=== PATIENT | female | born 1990 ===

== ENCOUNTER → 2016-11-13 | Outpatient (CLI) | payer OTHER ==
[~2016-11-13] MED LIST: ACET-1256 PO; CEPH-571 PO; CEPH500C PO; FERR1TAB13 PO; FERR325T5 PO; FRRS300 PO; IBUP-103 PO; IBUP-1450 PO; MTR600X PO; PRENTAB26 PO; ZNTT/150 PO
--- NOTE | 2016-11-13 14:50 | DIAGNOSTIC IMAGING REPORT ---
COMP>14 WEEKS SINGLE CLINICAL HISTORY: Poor growth at 33 weeks. COMPARISON STUDY: No previous studies for comparison. FINDINGS: Single viable intrauterine gestation is noted. heart rate is normal at 135 bpm. Amniotic fluid index measures 8.9 cm which is at the lower limits of normal. The cervix is closed, measuring approximately 2.5 cm in length. Please note that a dedicated anatomical survey was not performed. The biparietal diameter measured 8.6 cm which corresponds to an estimated gestational age of 34 weeks and 6 days. Head circumference measured 29 cm which corresponds to an estimated gestational age of 32 weeks and 0 days. Abdominal circumference measured 27.9 cm which corresponds to an estimated gestational age of 32 weeks and 0 days. Femur length measured 5.8 cm which corresponds to an estimated gestational age of 30 weeks and 3 days. Estimated age on this exam is 32 weeks and 2 days. Estimated weight is 4 pounds and 0 ounces. Presentation is cephalic. Placenta is located posteriorly and along the left lateral aspect of the uterus. No placental abnormalities identified. IMPRESSION: 1. Single viable intrauterine gestation with normal heart rate. 2. Amniotic fluid index at the lower limits of normal, measuring 8.9 cm. 3. Mildly shortened cervix, measuring approximately 2.5 cm. Cervix appears closed. 4. Estimated gestational age on this exam of 32 weeks and 2 days with estimated weight of 4 pounds and 0 ounces. Electronically signed by: Mulugeta Pérez M.D. 11/13/2016 2:48 PM Dictated Date/Time: 11/13/2016 2:44 PM
== END | disposition home or self-care (01) ==
LOC: C.ULTR 13:34
PROVIDERS: ATTEND Physician Assistant
DX: O36.5931 Maternal care for other known or suspected poor fetal growth, third trimester, fetus 1 (principal)

== ENCOUNTER 2016-12-20 06:23 | Outpatient (CLI) | payer OTHER ==
[2016-12-20] MEDS ORDERED: FERR1TAB13 PO (09:36)
[2017-03-16] MEDS ORDERED: PRENTAB26 PO (09:36)
[2017-03-16] MEDS ORDERED: ZNTT/150 PO (09:37)
[2017-03-16] MEDS ORDERED: FERR325T5 PO (18:11)
== END 2016-12-20 08:44 | disposition home or self-care (01) ==
LOC: C.OPB 06:23 → C.LD 06:23 → C.OPB 08:44
PROVIDERS: ATTEND Obstetrics & Gynecology
DX: O62.9 Abnormality of forces of labor, unspecified (principal); Z3A.39 39 weeks gestation of pregnancy

== ENCOUNTER 2016-12-20 15:32 | Inpatient (IN) | payer OTHER ==
[~2016-12-20] VITALS: Ht 167.6 cm; Wt 63.0 kg
[~2016-12-20 15:32] MED LIST changes: -ACET-1256 PO; -CEPH-571 PO; -CEPH500C PO; -FERR325T5 PO; -FRRS300 PO; -IBUP-103 PO; -IBUP-1450 PO; -MTR600X PO; -PRENTAB26 PO; -ZNTT/150 PO
[2016-12-20] MEDS ORDERED: LACTATED RINGER'S 1000ML 1,000 ML IV PRN (16:50)
[2016-12-20] MEDS ORDERED: PENICILLIN G POTASSIUM IV 6 MU in DEXTROSE 5% 250ML 250 ML IV ONE (17:00)
[2016-12-20 17:14] VITALS: Ht 167.6 cm; Wt 63.0 kg
[2016-12-20] MEDS: LACTATED RINGER'S 1000ML 1,000 ML IV SCH ×2 (17:23→19:39)
[2016-12-20] MEDS ORDERED: ACETAMINOPHEN 500 MG TAB PO STA (17:25)
[2016-12-20 17:45] LABS: HEMATOCRIT 28.3 % (37-47); MEAN CORPUSCULAR HGB CONC 32.5 g/dl (32-36); PLATELET COUNT 122 K/uL (130-400); PLT ESTIMATE DECREASED; RED BLOOD COUNT 3.29 M/uL (4.2-5.4); WHITE BLOOD COUNT 9.07 K/uL (4.8-10.8)
[2016-12-20] MEDS ORDERED: BUPIVACAINE 0.25% 30 ML VIAL ONE ×2 (18:59→23:26)
[2016-12-20] MEDS ORDERED: FENTANYL CITRATE INJ 50 MCG/1 ML 2 ML VIAL ONE ×2 (18:59→23:26)
[2016-12-20] MEDS ORDERED: EpHEDrine SULFATE INJ 50 MG/ML AMP ONE (18:59)
[2016-12-20] MEDS ORDERED: FENTANYL 2MCG/ML ROPIV 1.25MG/ML 100ML BAG EPI ONE (18:59)
[2016-12-20] MEDS ORDERED: LACTATED RINGER'S 1000ML 500 ML IV PRN ×2 (19:24→20:18)
[2016-12-20] MEDS ORDERED: FENTANYL 2MCG/ML ROPIV 1.25MG/ML 100ML BAG EPI PRN (19:30)
[2016-12-20] MEDS ORDERED: EpHEDrine SULFATE INJ 50 MG/ML AMP IV PRN (19:30)
[2016-12-20] MEDS ORDERED: NALOXONE HCL INJ 0.4 MG/1 ML VIAL/CARP IV PRN (19:30)
[2016-12-20] MEDS ORDERED: OXYTOCIN 30 UNITS/500ML NSS IV PRN (20:30)
[2016-12-20] MEDS: PENICILLIN G POTASSIUM IV 3 MU in DEXTROSE 5% 100ML 100 ML IV PRN (21:38)
[2016-12-20 22:10] LABS: INR 0.9 (0.9-1.1); PROTHROMBIN TIME (PATIENT) 9.4 SECONDS (9.0-12.0)
[2016-12-20 22:17] LABS: BUN/CREATININE RATIO 14.2 (10-20); CALCIUM 7.8 mg/dl (8.5-10.1); CREATININE 0.6 mg/dl (0.60-1.20); POTASSIUM 3.4 mmol/L (3.5-5.1)
[2016-12-20] MEDS ORDERED: MAGNESIUM SULFATE / WTR 1,000 ML IV ONE (23:18)
[2016-12-21] MEDS: PENICILLIN G POTASSIUM IV 3 MU in DEXTROSE 5% 100ML 100 ML IV PRN ×3 (01:41→09:43)
[2016-12-21] MEDS ORDERED: FENTANYL CITRATE INJ 50 MCG/1 ML 2 ML VIAL ONE (01:57)
[2016-12-21] MEDS ORDERED: LACTATED RINGER'S 1000ML 500 ML IV PRN (02:50)
[2016-12-21] MEDS ORDERED: NALOXONE HCL INJ 1 MG in SODIUM CHLORIDE 0.9% 1000ML 1,000 ML IV PRN (02:50)
[2016-12-21] MEDS ORDERED: NALOXONE HCL INJ 0.4 MG/1 ML VIAL/CARP IV PRN (03:00)
[2016-12-21] MEDS ORDERED: DiphenhydrAMINE HCL 50 MG/ML VIAL IV PRN (03:00)
[2016-12-21] MEDS ORDERED: ONDANSETRON INJ 2 MG/ML 2 ML VIAL IV PRN (03:00)
[2016-12-21] MEDS ORDERED: NALBUPHINE HCL INJ 10 MG/ML AMP IV PRN (03:00)
[2016-12-21] MEDS ORDERED: EpHEDrine SULFATE INJ 50 MG/ML AMP IV PRN (03:00)
[2016-12-21] MEDS: FENTANYL 2MCG/ML ROPIV 1.25MG/ML 100ML BAG EPI PRN ×3 (05:44→07:59)
[2016-12-21] MEDS ORDERED: BUPIVACAINE 0.25% 30 ML VIAL ONE (07:26)
[2016-12-21] MEDS ORDERED: FENTANYL 2MCG/ML ROPIV 1.25MG/ML 100ML BAG EPI PRN (07:30)
[2016-12-21] MEDS ORDERED: CARBOPROST TROMETHAMINE 250 MCG/ML AMP ONE (12:00)
[2016-12-21] MEDS ORDERED: MISOPROSTOL 200 MCG TAB ONE (12:03)
[2016-12-21] MEDS ORDERED: METHYLERGONOVINE MALEATE 0.2 MG/ML AMP ONE (12:04)
--- NOTE | 2016-12-21 12:59 | Progress Note ---
Progress Note Date of Service Dec 21, 2016. Progress Note Delivery Note Delivered live male in DESMOND presentation Tight nuchal cord, reduced without difficulty. Baby appears meconium stained. cord is clamped and cut . No delay cord clamping because of meconium 8/9 Cord gas and cord blood is obtained Placenta spontaneously delivered and appears meconium stained as well. Placenta is sent to pathology for analysis Inspection of the perineum showed a 2nd degree midline episiotomy with left labia laceration Moderate bleeding EBL; 500cc Hemabate IM is given with rectal Cytotec and Piton Episiotomy and laceration is repaired in 2-0 Vicryl layers There is good hematosis post repair Rectal exam post repair shows good sphincter tone and no sutures are palpated in rectum All instruments,sponges,needles and rectum are removed from the vagina and accounted for x2 Baby an mother are stable and doing well in recovery
[2016-12-21] MEDS ORDERED: LANOLIN OINT EXT PRN ×2 (13:00)
[2016-12-21] MEDS ORDERED: OXYTOCIN 30 UNITS/500ML NSS IV PRN (13:00)
[2016-12-21] MEDS ORDERED: BENZOCAINE 20% AER SPR 82.5 GM CAN EXT PRN (13:00)
[2016-12-21] MEDS ORDERED: SUPERCREAM 0.870 % 15GM JAR EXT PRN (13:00)
[2016-12-21] MEDS ORDERED: ACETAMINOPHEN 325 MG TAB PO PRN (13:00)
[2016-12-21] MEDS ORDERED: HYDROCORTISONE ACETATE 25 MG SUPP PR PRN (13:00)
[2016-12-21] MEDS ORDERED: IBUPROFEN 600 MG TAB PO PRN (13:00)
[2016-12-21] MEDS ORDERED: CARBOPROST TROMETHAMINE 250 MCG/ML AMP IM ONE (13:00)
[2016-12-21] MEDS ORDERED: OXYCODONE/ACETAMINOPHEN 5-325 TAB PO PRN (13:00)
[2016-12-21] MEDS ORDERED: ACETAMINOPHEN/CODEINE 300/30MG TAB PO PRN ×2 (13:00)
[2016-12-21] MEDS ORDERED: DIPHTHERIA/TETANUS/PERTUSSIS 0.5 ML SYR/VIAL IM. ONE (13:00)
--- NOTE | 2016-12-21 14:23 | Anesthesia Procedure Note ---
Anesthesia Epidural Removal Nt Date & Time Dec 21, 2016 at 14:23 Vital Signs Pain Intensity: 3 Notes Mental Status: alert / awake / arousable, participated in evaluation Nausea / Vomiting: adequately controlled Pain: adequately controlled Airway Patency, RR, SpO2: stable & adequate BP & HR: stable & adequate Hydration State: stable & adequate Neuraxial Anesthesia: was administered Anesthetic Complications: no major complications apparent, pt satisfied with anesthetic care Epidural: removed without complications, with tip intact
[2016-12-21 16:00] VITALS: BP 95/62; PULSE 88; TEMP 37.1; O2SAT 100
[2016-12-21 20:20] VITALS: BP 103/65; PULSE 88; TEMP 37.1; O2SAT 98
[2016-12-21] MEDS: DOCUSATE SODIUM 100 MG CAP PO SCH (20:23)
[2016-12-22 00:25] VITALS: BP 110/70; PULSE 96; TEMP 37.2
[2016-12-22 04:00] VITALS: BP 102/62; PULSE 76; TEMP 36.9
[2016-12-22 07:22] VITALS: BP 101/61; PULSE 72; TEMP 37; O2SAT 95
[2016-12-22] MEDS: DOCUSATE SODIUM 100 MG CAP PO SCH ×2 (07:56→19:59)
[2016-12-22] MEDS: FERROUS SULFATE 325 MG TAB PO SCH (07:57)
[2016-12-22] MEDS: PRENATAL VITAMIN TAB PO SCH (07:57)
[2016-12-22 11:32] VITALS: BP 110/71; PULSE 78; TEMP 36.9; O2SAT 98
[2016-12-22 15:40] VITALS: BP 115/65; PULSE 94; TEMP 36.9
[2016-12-22] MEDS ORDERED: BISACODYL 5 MG TABEC PO SCH (20:00)
[2016-12-22 23:55] VITALS: BP 106/70; PULSE 77; TEMP 37; O2SAT 99
[2016-12-23] MEDS ORDERED: BISACODYL 10 MG SUPP PR PRN (07:00)
[2016-12-23 07:18] LABS: HEMATOCRIT 21.8 % (37-47); MEAN CELL VOLUME 87.2 fL (80-100); MEAN CORPUSCULAR HEMOGLOBIN 28.8 pg (25-34); MEAN PLATELET VOLUME 11.7 fL (7.4-10.4); PLATELET COUNT 127 K/uL (130-400); WHITE BLOOD COUNT 14.09 K/uL (4.8-10.8)
[2016-12-23] MEDS ORDERED: MTR600X PO (07:37)
[2016-12-23] MEDS ORDERED: FRRS300 PO (07:37)
--- NOTE | 2016-12-23 07:39 | Discharge Instructions ---
Discharge Instructions Date of Service Dec 23, 2016. Admission Reason for Admission: Check Labor Discharge Discharge Diagnosis / Problem: term delivered Discharge Goals Goal(s): Routine recovery after delivery Activity Recommendations Activity Limitations: as noted below Lifting Limitations: no more than 10 pounds Exercise/Sports Limitations: gradually increase as tolerated, until after follow-up appointment May Resume Sexual Activity: after follow-up appointment Shower/Bathe: no limitations Driving or Machine Use: resume 3 days after discharge . Instructions / Follow-Up Instructions / Follow-Up ACTIVITY RECOMMENDATIONS: * Gradual return to full activity over the next 2-3 weeks. * No lifting - nothing heavier than baby over the next 2-3 weeks. * Do not engage in vigorous exercise, sexual activity or sports until cleared by your physician. * Do not drive or operate any motorized equipment until cleared by your physician. * You may shower/bathe daily. BREAST CARE: If you are not breast feeding: * Wear a supportive bra 24 hours a day for one to two weeks. * Avoid stimulating your breasts and nipples as much as possible during the first few weeks after delivery. * When taking a shower, have the warm water hit your back, not breasts. * When your breasts feel full, apply ice packs. Usually three to four times a day helps ease the discomfort. * Take a mild pain medication (Tylenol/Motrin) when you are uncomfortable. If breast feeding: * Use breast milk to lubricate nipples. Lansinoh cream may be used for sore nipples. You do not need to remove cream prior to breast feeding. If using a different brand of cream, check the label for directions regarding removal of cream prior to nursing. * Wear a supportive bra. * If having problems with breasts or breast feeding, call a security sales consultant or your health care provider. EPISIOTOMY CARE: After delivery, if you have an episiotomy (stitches), the following steps will ease discomfort and aid healing. * For the first 24 hours after delivery, place ice packs next to your episiotomy to help reduce swelling. * After the first 24 hour-period, sitz baths, either portable or in the tub, are suggested. A shower with a shower arm sprayed over the episiotomy may be comforting. * Geetha care should be done after each voiding and bowel movement. Squirt warm water from a plastic bottle over the perineum (region of the body between the anus and urinary opening) and pat dry. * Use Dermoplast to ease discomfort. Shake container. Fossil directly over the episiotomy. * Place a Tucks on a clean sanitary pad next to your episiotomy. OVER THE COUNTER MEDICATION: * For discomfort or pain, you may use Acetaminophen (Tylenol), Ibuprofen (Advil ), or Naproxen (Aleve) following the package directions. * For constipation you may use Colace following the package directions. SPECIAL CARE INSTRUCTIONS: When you are discharged from the hospital, it is important for you to follow the instructions listed below: * During the first week at home, you should be able to care for yourself and your baby. In addition, the usual light household activities are encouraged. * Limit your activities to the way you feel. Do not try to clean the house or move furniture. Be sensible. * If you actively engage in sports and have done so up until the time of your delivery, you may resume these activities as soon as you feel able. This may take up to one month or even longer. Use good judgment. * Continue to take your vitamins for at least six weeks after the of your baby. * Your diet need not be limited unless you were on a special diet before your delivery. Breast-feeding mothers need around 2500 calories per day and at least 64-80 ounces of fluid per day (8 to 10 glasses). * You should eat foods from the four major food groups. Crash diets or fad diets are to be avoided. Eating lean meats, fresh fruits and vegetables, low-fat dairy products, high fiber foods and a regular exercise program, will help you get back to your pre- weight without putting your health at risk. * Constipation is sometimes a problem after delivery. Take a mild laxative as needed. If breast feeding, Milk of Magnesia is acceptable to use. You may use a suppository or Fleets enema if no episiotomy. * A daily shower or tub bath is suggested. Be sure to thoroughly and gently dry the perineum. * A bloody vaginal discharge will usually continue until around four weeks post . A small amount of bleeding may continue for as long as six weeks. Vaginal discharge changes from the bright red bleeding after delivery to pink then brownish and finally yellowish-pink before becoming white and disappearing. * Bleeding may increase with activity. Your first period may come in 4-8 weeks. If you are breast feeding, your period may be delayed even longer. * Solomon (sex) can begin whenever both you and your partner feel comfortable and do not have any form of genital infection. It is recommended that you wait until after your return appointment and discuss with your physician. If you have questions, please talk to your health care practitioner. A condom should be used to prevent infection and . * Foreplay, gentle intercourse and lubrication is very important the first several times to prevent pain. A water-based lubricant such as K-Y jelly or Astroglide may be used. * Tampons may be used six weeks after delivery. * Douching should be avoided for 6 weeks after delivery. * If you have RH negative blood and your baby is RH positive, you will receive RHOGAM by injection prior to discharge. The nurse will give you a card to keep with you that has the date and place that you received RHOGAM after delivery. * During your care, you had a Rubella screen done to check for the presence of rubella antibodies in your blood. If your test was negative, you will receive a Rubella vaccine prior to discharge. This vaccine may cause a fever, soreness at the injection site and flu-like symptoms. If these symptoms persist, notify your health care practitioner. is not advised for three months after a Rubella vaccine. There is a higher chance of having a baby with defects if conceived within three months of getting the vaccine. * If you were discharged 24 hours from delivery or before 48 hours: Visiting nurses will come to your home 48 hours after discharge to assess you and your baby. The visiting nurse will meet with you while you are in the hospital to arrange a time and get directions to your home. * Verbalizes understanding of car seat law as reviewed with patient nursing. * Car Seat hand-out given and reviewed with patient by nursing. * Shaken baby information reviewed with patient by nursing. Call you doctor if: * Heavy bleeding (saturating several pads an hour) or passing clots the size of your fist. * A fever >101 degrees F (38.3 degrees C) on two occasions four hours apart and/or chills. * Unusual pain in the pelvic or vaginal areas. * "Baby Blues" lasting longer than two weeks. If you have any questions or concerns, call your health care practitioner at . FOLLOW-UP VISIT: * Please call the office at to schedule a 6 week examination. It is important you keep this appointment. * It is important for you to make arrangements for either yearly or twice yearly check-ups thereafter. Current Hospital Diet Patient's current hospital diet: Regular OB Diet Discharge Diet Recommended Diet: Regular OB Diet Fluid Restriction: None Pending Studies Studies pending at discharge: no Medical Emergencies . Who to Call and When: Medical Emergencies: If at any time you feel your situation is an emergency, please call 911 immediately. . Non-Emergent Contact Non-Emergency issues call your: Primary Care Provider . . "Provider Documentation" section prepared by Ronan Bernard. . VTE Core Measure Inpt VTE Proph given/why not?: Treatment not indicated
[2016-12-23 07:40] VITALS: BP 94/60; PULSE 63; TEMP 36.9; O2SAT 99
--- NOTE | 2016-12-23 08:02 | OB/GYN Progress Note ---
[employer] Progress Note Date of Service Dec 23, 2016. Subjective conversation w/ patient, physical exam Ambulation: ambulating normally Voiding: no voiding problems Passing Gas: Yes Diet Tolerance: Regular Diet Feeding Type: Breast Feeding Objective Vital Signs Date Time Temp Pulse Resp B/P (MAP) Pulse Ox O2 Delivery O2 Flow Rate FiO2 12/22/16 23:55 Room Air 12/22/16 23:55 37.0 77 18 106/70 (82) 99 Room Air 12/22/16 15:40 Room Air 12/22/16 15:40 36.9 94 18 115/65 (82) Room Air 12/22/16 11:32 36.9 78 18 110/71 (84) 98 Room Air Physical Exam General Appearance: WELL-APPEARING, NO APPARENT DISTRESS Abdomen: non tender, soft Fundus: Firm Extremities: non-tender, normal inspection, no pedal edema Laboratory Results Last 24 Hours Test 12/22/16 09:03 12/23/16 06:47 Hemoglobin 7.0 g/dL 7.2 g/dL Hematocrit 21.0 % 21.8 % White Blood Count 14.09 K/uL Red Blood Count 2.50 M/uL Mean Corpuscular Volume 87.2 fL Mean Corpuscular Hemoglobin 28.8 pg Mean Corpuscular Hemoglobin Concent 33.0 g/dl RDW Standard Deviation 42.9 fL RDW Coefficient of Variation 13.4 % Platelet Count 127 K/uL Mean Platelet Volume 11.7 fL Nucleated RBC Absolute Count (auto) 0.02 K/uL Nucleated Red Blood Cells % 0.2 % Assessment and Plan Post- Day Number: 2 Continue Routine Care: discharged
[2016-12-23] MEDS: FERROUS SULFATE 325 MG TAB PO SCH (08:22)
[2016-12-23] MEDS: DOCUSATE SODIUM 100 MG CAP PO SCH (08:22)
[2016-12-23] MEDS: PRENATAL VITAMIN TAB PO SCH (08:22)
[2016-12-23 12:15] VITALS: BP_DIAS 60; PULSE 63; TEMP 36.9
--- NOTE | 2016-12-25 13:23 | EDITING REQUIRED CODING QUERY ---
CODING QUERY Dear Dr. Bernard, To promote full compliance with coding requirements relating to patient care, provider participation is requested in all cases of foreign service teacher uncertainty. Please assist us with the question(s) below: Coding Question(s): Does the patient have: ( ) PIH ( ) Preeclampsia ( ) Mild ( ) Moderate ( ) Severe ( ) Severe with hemolysis, elevated liver enzymes and low platelet count (HELLP) ( ) Headache without PIH ( x ) PIH was ruled out ( ) Other: Please explain Documentation - c/o headaches, no visual symptoms, no edema - will check PIH labss. Physician's Response(s): Thank you for your time. Adla Arshad [facility] Principal Diagnosis: "_that condition established after study, to be chiefly responsible for occasioning the admission of the patient to the hospital for care." Co-Existing Principal Diagnosis: "_when two or more diagnoses equally meet the criteria for principal diagnosis as determined by the circumstances of admission, diagnostic work up, and/or therapy provided, and the Alphabetic Index, Tabular List, or another coding guideline does not provide sequencing direction, any one of the diagnoses may be sequenced first." "When the physician has documented what appears to be a current diagnosis in the body of the record, but has not included the diagnosis in the final diagnostic statement, the physician should be asked whether the diagnosis should be added." (Source [facility]oding [facility] 2 QTR90. p3-4)
[2017-03-16] MEDS ORDERED: PRENTAB26 PO (09:36)
[2017-03-16] MEDS ORDERED: ZNTT/150 PO (09:37)
[2017-03-16] MEDS ORDERED: FERR325T5 PO (18:11)
== END 2016-12-23 12:15 | disposition home or self-care (01) | DRG 774 ==
LOC: C.OPB 15:32 → C.LD 15:33 → C.OPB 17:15 → C.LD 17:15 → C.OBG 12-21 16:10
PROVIDERS: ADMIT Obstetrics & Gynecology; ATTEND Obstetrics & Gynecology
PROC: 10E0XZZ Delivery of Products of Conception, External Approach (ICD-10-PCS; principal; 2016-12-21)
PROC: 0W8NXZZ Division of Female Perineum, External Approach (ICD-10-PCS; principal; 2016-12-21)
PROC: 0UQMXZZ Repair Vulva, External Approach (ICD-10-PCS; principal; 2016-12-21)
DX: O99.824 Streptococcus B carrier state complicating childbirth (principal); O67.9 Intrapartum hemorrhage, unspecified; O76 Abnormality in fetal heart rate and rhythm complicating labor and delivery; O77.0 Labor and delivery complicated by meconium in amniotic fluid; O69.1XX0 Labor and delivery complicated by cord around neck, with compression, not applicable or unspecified; O70.0 First degree perineal laceration during delivery; O99.12 Other diseases of the blood and blood-forming organs and certain disorders involving the immune mechanism complicating childbirth; D69.6 Thrombocytopenia, unspecified; Z37.0 Single live birth; Z3A.39 39 weeks gestation of pregnancy

== ENCOUNTER 2017-02-28 17:39 | Emergency (ER) | payer OTHER ==
[~2017-02-28] VITALS: Ht 170.2 cm; Wt 51.2 kg
[~2017-02-28 17:39] MED LIST changes: -FERR1TAB13 PO; +FRRS300 PO; +MTR600X PO
[2017-02-28 17:43] VITALS: TEMP 37.9; Ht 170.2 cm; Wt 51.2 kg
[2017-02-28] MEDS ORDERED: ACETAMINOPHEN 500 MG TAB PO STA (18:07)
[2017-02-28] MEDS ORDERED: SODIUM CHLORIDE 0.9% 1000ML 1,000 ML IV STA (18:07)
[2017-02-28] MEDS ORDERED: IBUPROFEN 200 MG TAB PO STA (18:12)
[2017-02-28] MEDS ORDERED: CEPHALEXIN MONOHYDRATE 250 MG CAP PO ONE (18:15)
[2017-02-28] MEDS ORDERED: SODIUM CHLORIDE 0.9% 1000ML 1,000 ML IV SCH (18:15)
[2017-02-28] MEDS ORDERED: IBUP-1450 PO (18:16)
--- NOTE | 2017-02-28 18:36 | EMERGENCY ROOM VISIT NOTE ---
History Report prepared by Nelsy: Eric Olvera Under the Supervision of: Dr. Myron Mcintosh M.D. First contact with patient: 17:56 Chief Complaint: OTHER COMPLAINT Stated Complaint: BREAST PAIN, BODY IS COLD History of Present Illness The patient is a 26 year old female who presents to the Emergency Room with complaints of breast pain and chills Patient complains that beginning last evening she was complaining of some bilateral breast tenderness. Patient did complain of chills without fever. Patient recently gave 212 2 months ago. Patient denies any URI symptoms, cough, urinary symptoms, abdominal pain, nausea, vomiting. Patient did take some Tylenol which mildly improved similar pain. Patient has not noticed any fluctuance or purulent drainage. Patient denies any recent car or plane travel. Patient has no prior history of DVT or PE in the past. Patient denies any recent hospitalization for broken bones. Review of Systems See HPI for pertinent positives and negatives. A total of ten systems were reviewed and were otherwise negative. Past Medical & Surgical Medical Problems: (1) labor in third trimester at term (2) labor in third trimester at term (3) RULE OUT LABOR Family History No pertinent family history stated. Social History Smoking Status: Never Smoker Housing Status: lives with family Current/Historical Medications Scheduled Cephalexin (Keflex), 1 CAP PO QID Ferrous Sulfate (Ferrous Sulfate), 325 MG PO BID Multivit/Min/Iron/Fol Ac/Pren ( Vitamin), 1 TAB PO DAILY Ranitidine (Zantac), 150 MG PO DAILY Scheduled PRN Ibuprofen (Motrin), 600 MG PO Q4H PRN for Headache/Pain/Cramping/Fever Allergies Coded Allergies: No Known Allergies (Unverified , 12/21/16) Physical Exam Vital Signs Date Time Temp Pulse Resp B/P (MAP) Pulse Ox O2 Delivery O2 Flow Rate FiO2 02/28/17 20:05 77 15 108/54 97 02/28/17 19:31 93 14 105/62 98 Room Air 02/28/17 17:43 37.9 104 16 108/70 98 Room Air Physical Exam GENERAL: Awake, alert, well-appearing, NAD HENT: Normocephalic, atraumatic. EYES: Normal conjunctiva. Sclera non-icteric. NECK: Supple. No nuchal rigidity. FROM. RESPIRATORY: CTAB, no rhonchi, wheezing, crackles CARDIAC: RRR, no MRG ABDOMEN: Soft, NTND, BS+. Negative obturators and psoas sign. MSK: No chest wall TTP, no LE edema NEURO: GCS 15, CN 2-12 intact, moves all 4s on command SKIN: No jaundice noted. Reproducible bilateral breast tenderness. Scant erythema over the lateral aspect of the bilateral breasts. No fluctuance. No purulence. Medical Decision & Procedures ER Provider Diagnostic Interpretation: X-ray: Per my interpretation, radiologist review. CHEST 2 VIEWS ROUTINE FINDINGS: The bones soft tissues and hemidiaphragms are normal. The cardiomediastinal silhouette is normal. The lungs are clear. The pulmonary vasculature is normal. IMPRESSION: Negative chest. The above report was generated using voice recognition software. It may contain grammatical, syntax or spelling errors. Electronically signed by: Masoud Grissom M.D. 02/28/2017 7:00 PM Laboratory Results 02/28/17 18:30 Red Blood Count 4.14, Mean Corpuscular Volume 81.4, Mean Corpuscular Hemoglobin 26.8, Mean Corpuscular Hemoglobin Concent 32.9, Mean Platelet Volume 11.4, Neutrophils (%) (Auto) 86.4, Lymphocytes (%) (Auto) 8.4, Monocytes (%) (Auto) 3.3, Eosinophils (%) (Auto) 1.5, Basophils (%) (Auto) 0.2, Neutrophils # (Auto) 10.30, Lymphocytes # (Auto) 1.00, Monocytes # (Auto) 0.39, Eosinophils # (Auto) 0.18, Basophils # (Auto) 0.02 02/28/17 18:30 Test 02/28/17 18:30 White Blood Count 11.91 K/uL (4.8-10.8) Red Blood Count 4.14 M/uL (4.2-5.4) Hemoglobin 11.1 g/dL (12.0-16.0) Hematocrit 33.7 % (37-47) Mean Corpuscular Volume 81.4 fL (80-100) Mean Corpuscular Hemoglobin 26.8 pg (25-34) Mean Corpuscular Hemoglobin Concent 32.9 g/dl (32-36) Platelet Count 119 K/uL (130-400) Mean Platelet Volume 11.4 fL (7.4-10.4) Neutrophils (%) (Auto) 86.4 % Lymphocytes (%) (Auto) 8.4 % Monocytes (%) (Auto) 3.3 % Eosinophils (%) (Auto) 1.5 % Basophils (%) (Auto) 0.2 % Neutrophils # (Auto) 10.30 K/uL (1.4-6.5) Lymphocytes # (Auto) 1.00 K/uL (1.2-3.4) Monocytes # (Auto) 0.39 K/uL (0.11-0.59) Eosinophils # (Auto) 0.18 K/uL (0-0.5) Basophils # (Auto) 0.02 K/uL (0-0.2) RDW Standard Deviation 43.9 fL (36.4-46.3) RDW Coefficient of Variation 14.7 % (11.5-14.5) Immature Granulocyte % (Auto) 0.2 % Immature Granulocyte # (Auto) 0.02 K/uL (0.00-0.02) Anion Gap 9.0 mmol/L (3-11) Est Creatinine Clear Calc Drug Dose 79.6 ml/min Estimated GFR () 108.1 Estimated GFR (Non- 93.2 BUN/Creatinine Ratio 14.1 (10-20) Calcium Level 8.1 mg/dl (8.5-10.1) Laboratory results reviewed by me Medications Administered Medications (Trade) Dose Ordered Sig/Billie Route Start Time Stop Time Status Last Admin Dose Admin Acetaminophen (Tylenol Tab) 1,000 mg NOW STAT PO 02/28/17 18:07 02/28/17 18:10 DC 02/28/17 18:31 1,000 MG Sodium Chloride 1,000 ml @ 999 mls/hr Q1H1M IV 02/28/17 18:15 02/28/17 20:48 DC 02/28/17 18:30 999 MLS/HR Sodium Chloride 1,000 ml @ 999 mls/hr Q1H1M STAT IV 02/28/17 18:07 02/28/17 19:07 DC 02/28/17 18:30 999 MLS/HR Cephalexin Monohydrate (Keflex Cap) 500 mg NOW ONCE PO 02/28/17 18:15 02/28/17 18:16 DC 02/28/17 18:31 500 MG Ibuprofen (Advil Tab) 400 mg NOW STAT PO 02/28/17 18:12 02/28/17 18:14 DC 02/28/17 18:30 400 MG Magnesium Oxide (Mag-Ox Tab) 800 mg ONE STAT PO 02/28/17 19:08 02/28/17 19:09 DC 02/28/17 19:29 800 MG Potassium Chloride (Klor-Con Tab) 40 meq ONE STAT PO 02/28/17 19:08 02/28/17 19:09 DC 02/28/17 19:29 40 MEQ Calcium Carbonate (Tums Chew Tab) 500 mg ONE STAT PO 02/28/17 19:08 02/28/17 19:09 DC 02/28/17 19:29 500 MG ECG Indication: other (breast pain) Rate (beats per minute): 91 Rhythm: normal sinus Findings: other (Normal intervals. Normal axis. No STS or TWI. ) ED Course 1756: The patient was evaluated in room A4B. A complete history and physical exam was performed. 1944: I reevaluated the patient. Discussed results and discharge instructions: she verbalized understanding and agreement. The patient is ready for discharge. Medical Decision Differential diagnosis: cellulitis, mastitis, pneumonia, bronchitis, and UTI. Patient was seen and evaluated the bedside. Patient is a very well-appearing 26 -year-old female with no past medical problems patient does have painful breast tenderness and does have some cellulitic changes bilateral breasts. Patient was told continue breast-feeding should also apply ice packs in addition to warm compresses. Patient was given antibiotics lab work EKG chest x-ray. Patient was given antibiotics. Patient's EKG and chest x-ray were fairly unremarkable. Patient had a white count of 11. Patient did have mildly low potassium before she was given mag potassium and slightly lower calciums, she was also given calcium. Even if patient had a urinary tract infection she would be treated given in about she is sitting. Patient was also told to apply ice pack and/or warm compresses to the breast. Patient was told return if she has worsening redness fever or drainage coming from the breast. Patient was given strict follow-up, discharge, return precautions. Patient family agreed with treatment care patient was safely discharged home. Medication Reconcilliation Current Medication List: was personally reviewed by me Blood Pressure Screening Patient's blood pressure: Normal blood pressure Blood pressure disposition: Did not require urgent referral Impression Primary Impression: Mastitis without abscess Scribe Attestation The scribe's documentation has been prepared under my direction and personally reviewed by me in its entirety. I confirm that the note above accurately reflects all work, treatment, procedures, and medical decision making performed by me. Departure Information Dispostion Home / Self-Care Prescriptions Cephalexin (KEFLEX) 500 Mg Cap 1 CAP PO QID for 7 Days, #28 CAP Prov: Myron Mcintosh M.D. 02/28/17 Referrals No Doctor, Assigned (PCP) Patient Instructions Cellulitis Ajit, [facility] Additional Instructions Por favor regrese al departamento de emergencias si tiene sntomas de empeoramiento o recurrentes que no son susceptibles de tratamiento en el hogar. Llame para roby marjorie de seguimiento con rai mdico de atencin primaria. Por favor , tome joesph medicamentos segn lo prescrito. Si tiene otras preocupaciones y / o quejas, por favor no dude en llamar a la oficina de rai mdico de atencin primaria o devolver la [place] para rai evaluacin, manejo y tratamiento. Usted puede chin 400 mg de ibuprofeno cada 12 horas segn sea necesario para el dolor con alimentos maria elnea no ms de 2 pelaez consecutivos. Usted puede chin tylenol 1000mg cada 6 horas segn sea necesario para el dolor. Usted puede chin motrin y tylenol por separado o al mismo tiempo. Usted puede aplicar icepacks a los pechos y las compresas calientes a los pechos para ayudar w / dolor. Usted carcamo sido examinado y tratado hoy en roby base de emergencia solamente. [place] no es un sustituto para, o un esfuerzo para proporcionar, completa atencin m dica completa. Es imposible reconocer y tratar todas las lesiones o enfermedades en roby yuniel visita al departamento de emergencias. Por lo tanto, es importante que usted siga de cerca con los [facility]. Llamar gonzalez pronto amilcar sea posible para roby marjorie. Celia por rai tiempo y consideracin. Espero volver a hablar con usted pronto. Por favor, no dude en llamarnos si tiene alguna pregunta. Work Instructions Return To Work: 1 day
[2017-02-28 18:42] LABS: BASO % 0.2 %; BASO ABS # 0.02 K/uL (0-0.2); COMPLETE YES; EOS % 1.5 %; HEMATOCRIT 33.7 % (37-47); IG% 0.2 %; LYMPH % 8.4 %; MEAN CELL VOLUME 81.4 fL (80-100); MEAN CORPUSCULAR HEMOGLOBIN 26.8 pg (25-34); MEAN CORPUSCULAR HGB CONC 32.9 g/dl (32-36); MEAN PLATELET VOLUME 11.4 fL (7.4-10.4); MONO % 3.3 %; NEUT % 86.4 %; PLATELET COUNT 119 K/uL (130-400); RED BLOOD COUNT 4.14 M/uL (4.2-5.4); WHITE BLOOD COUNT 11.91 K/uL (4.8-10.8)
--- NOTE | 2017-02-28 19:02 | DIAGNOSTIC IMAGING REPORT ---
CHEST 2 VIEWS ROUTINE CLINICAL HISTORY: pain to b/l breasts, fever COMPARISON STUDY: No previous studies for comparison. FINDINGS: The bones soft tissues and hemidiaphragms are normal. The cardiomediastinal silhouette is normal. The lungs are clear. The pulmonary vasculature is normal. IMPRESSION: Negative chest. The above report was generated using voice recognition software. It may contain grammatical, syntax or spelling errors. Electronically signed by: Masoud Grissom M.D. 02/28/2017 7:00 PM Dictated Date/Time: 02/28/2017 7:00 PM
[2017-02-28 19:04] LABS: BUN/CREATININE RATIO 14.1 (10-20); CALCIUM 8.1 mg/dl (8.5-10.1); CREATININE 0.85 mg/dl (0.60-1.20); POTASSIUM 3.1 mmol/L (3.5-5.1)
[2017-02-28] MEDS ORDERED: POTASSIUM CHLORIDE 20 MEQ TABCR PO STA (19:08)
[2017-02-28] MEDS ORDERED: MAGNESIUM OXIDE 400 MG TAB PO STA (19:08)
[2017-02-28] MEDS ORDERED: CALCIUM CARBONATE 500 MG CHEWABLE PO STA (19:08)
[2017-02-28] MEDS ORDERED: POTASSIUM CHLORIDE 10 MEQ TABCR ONE (19:23)
[2017-02-28 20:05] VITALS: BP 108/54; PULSE 77; O2SAT 97
[2017-02-28] MEDS ORDERED: CEPH-571 PO (20:19)
[2017-03-16] MEDS ORDERED: PRENTAB26 PO (09:36)
[2017-03-16] MEDS ORDERED: ZNTT/150 PO (09:37)
[2017-03-16] MEDS ORDERED: FERR325T5 PO (18:11)
== END 2017-02-28 20:05 | disposition home or self-care (01) ==
LOC: C.EDB 17:41 → C.EDA 20:05
DX: N61.0 Mastitis without abscess (principal)

== ENCOUNTER 2017-03-16 20:33 | Emergency (ER) | payer OTHER ==
[~2017-03-16] VITALS: Ht 167.6 cm; Wt 50.7 kg
[~2017-03-16 20:33] MED LIST changes: +FERR325T5 PO; -FRRS300 PO; +IBUP-1450 PO; -MTR600X PO; +PRENTAB26 PO; +ZNTT/150 PO
[2017-03-16 20:48] VITALS: Ht 167.6 cm; Wt 50.7 kg
[2017-03-16 22:20] LABS: BASO % 0.2 %; BASO ABS # 0.03 K/uL (0-0.2); COMPLETE YES; EOS % 0.9 %; HEMATOCRIT 35.7 % (37-47); IG% 0.3 %; LYMPH % 5.4 %; LYMPH ABS # 0.75 K/uL (1.2-3.4); MEAN CELL VOLUME 79.7 fL (80-100); MEAN CORPUSCULAR HEMOGLOBIN 26.6 pg (25-34); MEAN CORPUSCULAR HGB CONC 33.3 g/dl (32-36); MEAN PLATELET VOLUME 11.8 fL (7.4-10.4); MONO % 2.7 %; NEUT % 90.5 %; PLATELET COUNT 133 K/uL (130-400); RED BLOOD COUNT 4.48 M/uL (4.2-5.4); WHITE BLOOD COUNT 13.77 K/uL (4.8-10.8)
[2017-03-16 22:41] LABS: BUN/CREATININE RATIO 14.5 (10-20); CALCIUM 8.8 mg/dl (8.5-10.1); CREATININE 0.99 mg/dl (0.60-1.20); POTASSIUM 3.2 mmol/L (3.5-5.1)
--- NOTE | 2017-03-16 22:51 | DIAGNOSTIC IMAGING REPORT ---
LEFT BREAST ULTRASONOGRAPHY CLINICAL HISTORY: Left breast pain. Possible abscess COMPARISON STUDY: No previous studies for comparison. FINDINGS: The left breast was imaged at the point of clinical concern (10, 11, and 12:00). There is left breast edema. There are no fluid collections to indicate a focal abscess. IMPRESSION: No abscess identified. Electronically signed by: Rajesh Ray M.D. 03/16/2017 10:50 PM Dictated Date/Time: 03/16/2017 10:47 PM
[2017-03-16] MEDS ORDERED: IBUP-103 PO (23:04)
[2017-03-16] MEDS ORDERED: ACET-1256 PO (23:04)
[2017-03-16 23:06] LABS: LYME DISEASE AB IGG NEG (NEG); LYME DISEASE AB IGM NEG (NEG)
[2017-03-16] MEDS ORDERED: ACETAMINOPHEN 325 MG TAB PO STA (23:38)
[2017-03-16] MEDS ORDERED: CEPH500C PO (23:39)
[2017-03-16] MEDS ORDERED: CEPHALEXIN 500MG HOME PACK 1 EA BTL PO ONE (23:45)
[2017-03-17 00:16] VITALS: BP 127/65; PULSE 103; TEMP 38; O2SAT 97
--- NOTE | 2017-03-17 02:09 | EMERGENCY ROOM VISIT NOTE ---
History Report prepared by Nelsy: Opal Hunt Under the Supervision of: Dr. Lion Pablo M.D. First contact with patient: 21:21 Chief Complaint: OTHER COMPLAINT Stated Complaint: LEFT BREAST PAIN History of Present Illness The patient is a 26 year old female who presents to the Emergency Room with complaints of constant left breast pain beginning last night. The patient states that she was seen here 3 weeks ago for the same pain but in both breasts. She reports that following her visit, her symptoms resolved but returned again last night. The patient complains of a fever, nausea, headaches, elbow pain, knee pain, and back pain. She reports that her joint achiness resolved after her last visit but also returned today. She notes that she is breast feeding and the baby does bite and pull. She notes that her breast is swollen and her fever is not very high. The patient denies any vomiting, shortness of breath, rash, cold symptoms, cough, sick contacts, and recent tick bites. She reports that she has been taking Tylenol and ibuprofen without relief of her symptoms. She notes that she finished her last course of antibiotics. Source of History: patient, other (pediatric sports medicine specialist) History Limited By: language Onset: last night Position: other (left breast) Quality: other (swelling) Timing: constant Modifying Factors (Relieving): other (none) Associated Symptoms: + fevers, + headache, + nausea, No cough, No SOB, No vomiting, No urinary symptoms, No rash Note: The patient complains of a elbow pain, knee pain, and back pain. The patient denies any cold symptoms, cough, sick contacts, and recent tick bites. Review of Systems See HPI for pertinent positives & negatives. A total of 10 systems reviewed and were otherwise negative. Past Medical & Surgical Medical Problems: (1) labor in third trimester at term (2) labor in third trimester at term (3) RULE OUT LABOR Family History No pertinent family history stated. Social History Smoking Status: Never Smoker Marital Status: Housing Status: lives with family Current/Historical Medications Scheduled Acetaminophen (Tylenol), 1,000 MG PO prn ud Cephalexin Monohydrate (Keflex), 500 MG PO QID Ferrous Sulfate (Ferrous Sulfate), 325 MG PO BID Multivit/Min/Iron/Fol Ac/Pren ( Vitamin), 1 TAB PO DAILY Ranitidine (Zantac), 150 MG PO DAILY Scheduled PRN Ibuprofen Tab (Advil), 400-600 MG PO Q6H PRN for Pain or Fever Allergies Coded Allergies: No Known Allergies (Unverified , 03/16/17) Physical Exam Vital Signs Date Time Temp Pulse Resp B/P (MAP) Pulse Ox O2 Delivery O2 Flow Rate FiO2 03/17/17 00:16 38.0 103 20 127/65 97 03/16/17 22:47 103 20 126/72 98 Room Air 03/16/17 20:48 38.3 105 18 117/70 96 Room Air Physical Exam Constitutional: Vital signs reviewed. Eyes: Pupils are equal round reactive to light. Conjunctiva are noninjected. ENT: Pharynx is clear without erythema or exudate. Mucous membranes are moist. Neck supple without meningeal signs. Respiratory: Clear to auscultation bilaterally. Breath sounds are equal bilaterally. Cardiovascular: Regular rate and rhythm. No rubs or gallops. Breast: Tenderness, erythema, and induration to superior aspect of left breast. No axillary lymphadenopathy, no nipple discharge. GI: Soft, nondistended and nontender. Bowel sounds are present. Musculoskeletal: No peripheral edema. No CVA tenderness. No joint swelling. Integumentary: No cyanosis. Neurological: The patient is awake and alert. No focal deficits. Psychiatric: Normal affect. Medical Decision & Procedures ER Provider Diagnostic Interpretation: Radiology results as stated below per my review and the radiologist's interpretation: LEFT BREAST ULTRASONOGRAPHY FINDINGS: The left breast was imaged at the point of clinical concern (10, 11, and 12:00). There is left breast edema. There are no fluid collections to indicate a focal abscess. IMPRESSION: No abscess identified. Electronically signed by: Rajesh Ray M.D. 03/16/2017 10:50 PM Dictated Date/Time: 03/16/2017 10:47 PM Laboratory Results 03/16/17 21:50 Red Blood Count 4.48, Mean Corpuscular Volume 79.7, Mean Corpuscular Hemoglobin 26.6, Mean Corpuscular Hemoglobin Concent 33.3, Mean Platelet Volume 11.8, Neutrophils (%) (Auto) 90.5, Lymphocytes (%) (Auto) 5.4, Monocytes (%) (Auto) 2.7, Eosinophils (%) (Auto) 0.9, Basophils (%) (Auto) 0.2, Neutrophils # (Auto) 12.46, Lymphocytes # (Auto) 0.75, Monocytes # (Auto) 0.37, Eosinophils # (Auto) 0.12, Basophils # (Auto) 0.03 03/16/17 21:50 Test 03/16/17 21:50 White Blood Count 13.77 K/uL (4.8-10.8) Red Blood Count 4.48 M/uL (4.2-5.4) Hemoglobin 11.9 g/dL (12.0-16.0) Hematocrit 35.7 % (37-47) Mean Corpuscular Volume 79.7 fL (80-100) Mean Corpuscular Hemoglobin 26.6 pg (25-34) Mean Corpuscular Hemoglobin Concent 33.3 g/dl (32-36) Platelet Count 133 K/uL (130-400) Mean Platelet Volume 11.8 fL (7.4-10.4) Neutrophils (%) (Auto) 90.5 % Lymphocytes (%) (Auto) 5.4 % Monocytes (%) (Auto) 2.7 % Eosinophils (%) (Auto) 0.9 % Basophils (%) (Auto) 0.2 % Neutrophils # (Auto) 12.46 K/uL (1.4-6.5) Lymphocytes # (Auto) 0.75 K/uL (1.2-3.4) Monocytes # (Auto) 0.37 K/uL (0.11-0.59) Eosinophils # (Auto) 0.12 K/uL (0-0.5) Basophils # (Auto) 0.03 K/uL (0-0.2) RDW Standard Deviation 43.7 fL (36.4-46.3) RDW Coefficient of Variation 15.0 % (11.5-14.5) Immature Granulocyte % (Auto) 0.3 % Immature Granulocyte # (Auto) 0.04 K/uL (0.00-0.02) Anion Gap 9.0 mmol/L (3-11) Est Creatinine Clear Calc Drug Dose 67.7 ml/min Estimated GFR () 89.9 Estimated GFR (Non- 77.6 BUN/Creatinine Ratio 14.5 (10-20) Calcium Level 8.8 mg/dl (8.5-10.1) Lyme Disease IgG Antibody NEG (NEG) Lyme Disease IgM Antibody NEG (NEG) Laboratory results as reviewed by me. Medications Administered Medications (Trade) Dose Ordered Sig/Billie Route Start Time Stop Time Status Last Admin Dose Admin Cephalexin Monohydrate (Keflex 500MG Home Pack) 1 homepack NOW ONCE PO 03/16/17 23:45 03/16/17 23:46 DC 03/17/17 00:06 1 HOMEPACK Acetaminophen (Tylenol Tab) 650 mg NOW STAT PO 03/16/17 23:38 03/16/17 23:39 DC 03/17/17 00:07 650 MG ED Course 2120: The patient was evaluated in room C10. A complete history and physical exam was performed. 2337: I reevaluated the patient and discussed her results and discharge instructions with the pediatric sports medicine specialist. 2338: Tylenol Tab 650mg PO. 2345: Cephalexin Monohydrate 1 homepack PO. 2348: Upon reevaluation, the patient appeared to have improvement of her symptoms. I discussed tonight's findings with the patient. She verbalized agreement of the treatment plan. The patient was discharged home. Medical Decision This is a 26-year-old female who presents with left breast pain, tactile fever and joint pain. Differential diagnosis includes mastitis, breast abscess, bacteremia, viral syndrome, Lyme disease. I did perform a limited focused review of portions of the patient's old chart on the electronic medical record. The patient was here for breast pain and chills. She was diagnosed with mastitis and sent home with Keflex. I did evaluate the patient as noted above. I did obtain history through a target trimmer. The patient is presenting with left breast pain. She also complains of chills and joint pain. She had similar symptoms she was diagnosed with mastitis the last time she was here. They resolved and came back yesterday. IV access was established. I did order and review the patient's blood work as noted in the electronic medical record. Her white blood cell count is slightly elevated. She has some mild hypokalemia. Lyme testing was negative. I did order an ultrasound of the left breast. I did review the images myself as well as the radiology report as described above. There is no evidence of abscess. I did reassess the patient. I did discuss the test results with her and her via a target trimmer. I did review discharge instructions and return instructions as well as need for follow with them. She does appear to have a left mastitis. Given her recurrent symptoms I did treat her with a 14 day course of Keflex. Medication Reconcilliation Current Medication List: was personally reviewed by me Blood Pressure Screening Patient's blood pressure: Normal blood pressure Blood pressure disposition: Did not require urgent referral Impression Primary Impression: Acute mastitis of left breast Scribe Attestation The scribe's documentation has been prepared under my direct and personally reviewed by me in its entirety. I confirm that the note above accurately reflects all work, treatment, procedures, and medical decision making performed by me. Departure Information Dispostion Home / Self-Care Prescriptions Cephalexin Monohydrate (Keflex) 500 Mg Cap 500 MG PO QID for 13 Days, #52 CAP Prov: Lion Pablo M.D. 03/16/17 Referrals No Doctor, Assigned (PCP) Forms HOME CARE DOCUMENTATION FORM, IMPORTANT VISIT INFORMATION, WORK / SCHOOL INSTRUCTIONS Patient Instructions ED Breast Infec, My [facility] Additional Instructions You have been examined and treated today on an emergency basis only. This is not a substitute for, or an effort to provide, complete comprehensive medical care. It is impossible to recognize and treat all injuries or illnesses in a single emergency department visit. It is therefore important that you follow up closely with your physician. Call as soon as possible for an appointment. Return for worsening symptoms or if you develop fever, vomiting, or any other concerning symptoms.
== END 2017-03-17 00:20 | disposition home or self-care (01) ==
LOC: C.EDB 20:34 → C.EDC 03-17 00:20
DX: N61.0 Mastitis without abscess (principal)

== ENCOUNTER 2019-12-12 12:24 | Inpatient (IN) ==
[2019-12-12] MEDS: LACTATED RINGER'S 1,000 ML IV PRN ×3 (13:25→18:17)
[2019-12-12] MEDS ORDERED: OXYTOCIN 30 UNITS/500 ML BAG IV PRN ×3 (13:30→19:57)
[2019-12-12] MEDS ORDERED: PENICILLIN G POTASSIUM 3 MU in DEXTROSE 5% 100 ML IV PRN (13:30)
--- NOTE | 2019-12-12 13:30 | Obstetrical Progress Note ---
Date of Service December 12, 2019 Subjective Pt seen in office and sent for labor augmentation doing well FHR; CAT1 VE; 4/50/-2 Ctx 4-5 mins EFW; 7lbs + GBS will start Pitocin and PCN for GBS priphylaxis Results & Data ([facility]) Vital Signs (Past 12 Hours) Vital Signs Temp Pulse Resp BP 12/12/19 12:37 36.9 C 18 12/12/19 12:26 65 116/57 L
[2019-12-12] MEDS ORDERED: fentaNYL citrate 100 MCG/2 ML VIAL ONE ×2 (13:44→19:23)
[2019-12-12] MEDS ORDERED: BUPIVACAINE 0.25% 30 ML VIAL ONE ×2 (13:44→19:22)
[2019-12-12] MEDS ORDERED: ePHEDrine sulfate 50 MG/ML AMP ONE (13:44)
[2019-12-12] MEDS ORDERED: fentaNYL 2MCG/ML ROPIV 1.25MG/ML 100 ML BAG EPI ONE (13:45)
[2019-12-12 13:54] LABS: Hematocrit (blood only) 33.1 % (37-47); Hemoglobin 11.2 g/dL (12.0-16.0); Mean Corpuscular Volume 91.7 fL (80-100); Mean Platelet Volume 11.7 fL (7.4-10.4); Platelet Count 121 K/uL (130-400); RDW Coefficient of Variation 13.8 % (11.5-14.5); Red Blood Count 3.61 M/uL (4.2-5.4); White Blood Count 7.64 K/uL (4.8-10.8)
[2019-12-12 14:00] LABS: Mean Corpuscular Hgb Conc 33.8 g/dL (32-36)
[2019-12-12] MEDS ORDERED: PENICILLIN G POTASSIUM 6 MU in DEXTROSE 5% 250 ML IV ONE (14:00)
--- NOTE | 2019-12-12 14:24 | Anesthesiology Consultation ---
Date of Service December 12, 2019 Assessment & Plan (1) Encounter for pre-operative examination: Chart Review Chart Review: Acceptable Risk for Labor Epidural Consults Requested none ASA ASA2 Proposed Anesthesia Anesthesia Type: Labor Epidural Risk / Benefits Reviewed With: PT / POA / Parent / Guardian, Accepts Plan and Informed Consent Obtained History Height/Weight Height: 5 ft 7 in Weight: 67.585 kg Allergies Allergy/AdvReac Type Severity Reaction Status Date / Time No Known Allergies Allergy Verified 12/12/19 12:55 Medications Home Medications Medication Instructions Recorded Confirmed Last Taken ferrous sulfate 325 mg PO DAILY 12/09/19 12/12/19 12/11/19 vit-iron fum-folic ac 1 tab PO DAILY 12/09/19 12/12/19 12/11/19 [ Vitamin] Active Medications Generic Name Dose Route Start Last Admin Trade Name Freq PRN Reason Stop Dose Admin Lactated Ringer's 1,000 mls @ 125 mls/hr 12/12/19 13:30 12/12/19 14:21 Lr IV 12/14/19 13:29 999 mls/hr .Q8H PRN Infusion L&D Protocol Protocol Past Medical History Medical History Thrombocytopenia affecting (~06/07/19) Exercise / Class Metabolic Activity II 4-5 Yardwork/Stairs/Walk up hill Past Surgical History Surgical History No history of previous surgery Past Anesthesia History No Hx of Anesthesia Complications and No Family Hx of Anesthesia Complications History of PONV No Hx of PONV and No Hx of Motion Sickness Social History Smoking Status: Never smoker Hx Alcohol Use: No Hx Substance Use: No Physical Exam Vital Signs Last Vital Signs Temp 98.4 F 12/12/19 12:37 Pulse 59 L 12/12/19 14:16 Resp 18 12/12/19 12:37 BP 119/82 12/12/19 13:56 Pulse Ox 100 12/12/19 14:16 ENMT Mouth: no dentition abnormality Thyromental Distance: > or= 3.5 Finger Breadths Mallampati Class: II Neck normal visual inspection Respiratory normal respiratory effort Auscultation: lungs clear to auscultation bilaterally Cardiovascular Rate/Rhythm: regular rate and regular rhythm Testing Laboratory Results 12/12/19 13:42
[2019-12-12] MEDS ORDERED: NALOXONE HCL 0.4 MG/1 ML VIAL/CARP IV PRN (14:45)
[2019-12-12] MEDS ORDERED: DiphenhydrAMINE HCL 50 MG/ML VIAL IV PRN (14:45)
[2019-12-12] MEDS ORDERED: ePHEDrine sulfate 50 MG/ML AMP IV PRN (14:45)
[2019-12-12] MEDS ORDERED: fentaNYL 2MCG/ML ROPIV 1.25MG/ML 100 ML BAG EPI PRN (14:45)
[2019-12-12] MEDS ORDERED: ONDANSETRON INJ 2 MG/ML 2 ML VIAL IV PRN (14:45)
[2019-12-12] MEDS ORDERED: NALOXONE HCL 1 MG in SODIUM CHLORIDE 0.9% 1000ML 1,000 ML IV PRN (14:45)
[2019-12-12 16:28] LABS: Hepatitis B Surface Antigen Neg (Neg); Rubella IgG Antibody Immune (Immune)
[2019-12-12] MEDS ORDERED: METHYLERGONOVINE MALEATE 0.2 MG/ML AMP ONE (19:47)
--- NOTE | 2019-12-12 19:56 | Anesthesiology Progress Note ---
Date of Service December 12, 2019 Subjective The patient stated having increasing labor pains. The epidural was bolused with 4mL of 0.125% bupivacaine and 50mcg of fentanyl. VSS throughout. Physical Exam Vital Signs: Last Vital Signs Temp 98.1 F 12/12/19 19:05 Pulse 67 12/12/19 19:54 Resp 18 12/12/19 19:05 BP 115/57 L 12/12/19 19:54 Pulse Ox 100 12/12/19 19:50 Results & Data Medications Administered Lactated Ringer's (Lr) 1,000 mls @ 125 mls/hr IV .Q8H PRN; Protocol PRN Reason: L&D Protocol Stop: 12/14/19 13:29 Last Admin: 12/12/19 18:17 Dose: 125 mls/hr Documented by: [id number] Infusion: 12/12/19 18:17 Dose: 125 mls/hr Documented by: [id number] Infusion: 12/12/19 15:15 Dose: 125 mls/hr Documented by: [id number] Admin: 12/12/19 14:44 Dose: 999 mls/hr Documented by: [id number] Infusion: 12/12/19 14:44 Dose: 999 mls/hr Documented by: [id number] Infusion: 12/12/19 14:21 Dose: 999 mls/hr Documented by: [id number] Infusion: 12/12/19 13:55 Dose: 125 mls/hr Documented by: [id number] Admin: 12/12/19 13:25 Dose: 125 mls/hr Documented by: [id number] Penicillin G Potassium 3 mu/ (Dextrose) 106 mls @ 100 mls/hr IV Q4H PRN PRN Reason: Give until delivery Stop: 12/22/19 13:29 Last Infusion: 12/12/19 19:17 Dose: 0 mls/hr Documented by: [id number] Admin: 12/12/19 18:16 Dose: 100 mls/hr Documented by: [id number] Oxytocin (Pitocin) 30 units in 500 mls @ 6 mls/hr IV .Q24H PRN; Protocol PRN Reason: Labor Induction/Augmentation Stop: 12/14/19 13:29 Last Titration: 12/12/19 17:13 Dose: 0.36 units/hr, 6 mls/hr Documented by: [id number] Titration: 12/12/19 16:36 Dose: 0.24 units/hr, 4 mls/hr Documented by: [id number] Admin: 12/12/19 15:54 Dose: 0.12 units/hr, 2 mls/hr Documented by: [id number] Cosigned by: [id number]
[2019-12-12] MEDS ORDERED: DIPHTHERIA/TETANUS/PERTUSSIS 0.5 ML SYR/VIAL IM ONE (19:57)
[2019-12-12] MEDS ORDERED: bisacodyL 10 MG SUPP PR PRN (19:57)
[2019-12-12] MEDS ORDERED: miSOPROStoL 200 MCG TAB PR ONE (19:57)
[2019-12-12] MEDS ORDERED: BENZOCAINE 20% AER SPR 82.5 GM CAN EXT PRN (19:57)
[2019-12-12] MEDS ORDERED: HYDROCORTISONE ACETATE 25 MG SUPP PR PRN (19:57)
[2019-12-12] MEDS ORDERED: SUPERCREAM 0.870% 15 GM JAR EXT PRN (19:57)
[2019-12-12] MEDS ORDERED: ACETAMINOPHEN 325 MG TAB PO PRN (19:57)
[2019-12-12] MEDS ORDERED: IBUPROFEN 600 MG TAB PO PRN (19:57)
--- NOTE | 2019-12-12 20:34 | Delivery Summary ---
DATE OF OPERATION: 12/12/2019 DELIVERY NOTE: The patient delivered a live male in left occiput anterior presentation. There was no nuchal cord. was delivered and placed on mother's abdomen. Cord was clamped and cut, and the was handed over to the pediatric team. Weight and Apgars in the pediatric record. Cord blood was obtained. Placenta was spontaneously delivered. Estimated blood loss is 450 mL. Inspection of the perineum shows a first degree laceration, which is stabilized with a [id number] Vicryl stitch. Rectal exam post repair showed good sphincter tone, no sutures are palpated in the rectum. The patient is hemodynamically stable and well and baby is in recovery with the patient. All instruments are removed from the vagina and accounted for x2 including sponges, needles and retractors. I attest to the content of the Intraoperative Record and any orders documented therein. Any exceptions are noted below. SONIAD
--- NOTE | 2019-12-12 22:14 | Anesthesia Procedure Note ---
Date of Service December 12, 2019 Anesthesia Post Epidural Note Vital Signs Vital Signs: Temp Pulse Resp BP Pulse Ox 97.7 F 75 18 107/47 L 99 12/12/19 19:54 12/12/19 22:09 12/12/19 21:39 12/12/19 22:09 12/12/19 20:10 Pain Intensity Bilateral Abdomen: Pain Intensity: 0 Notes Mental Status: alert / awake / arousable and participated in evaluation Nausea / Vomiting: adequately controlled Pain: adequately controlled Airway Patency, RR, SpO2: stable & adequate BP & HR: stable & adequate Hydration State: stable & adequate Neuraxial Anesthesia: was administered and sensory block is resolving Anesthetic Complications: no major complications apparent and Pt Satisfied with anesthetic care Epidural: Removed without complications and With tip intact
[2019-12-12] MEDS: DOCUSATE SODIUM 100 MG CAP PO SCH (22:41)
[2019-12-13 06:53] LABS: Hemoglobin 10.2 g/dL (12.0-16.0); Mean Corpuscular Hemoglobin 31.3 pg (25-34); Mean Platelet Volume 12.2 fL (7.4-10.4); Platelet Count 120 K/uL (130-400); Platelet Estimate Decreased (Normal); RDW Coefficient of Variation 13.8 % (11.5-14.5); RDW Standard Deviation 45.9 fL (36.4-46.3); Red Blood Count 3.26 M/uL (4.2-5.4); White Blood Count 10.46 K/uL (4.8-10.8)
[2019-12-13] MEDS: DOCUSATE SODIUM 100 MG CAP PO SCH ×2 (08:01→20:47)
[2019-12-13] MEDS: PRENATAL VITAMIN 1 TAB PO SCH (08:01)
--- NOTE | 2019-12-13 11:32 | Obstetrical Progress Note ---
Date of Service December 13, 2019 Assessment & Plan Admission and Anticipated Discharge Date Admission Date: December 12, 2019 Subjective PPD#1 stable Physical Exam Constitutional: WD/WN, vitals as above comfortable abdomen soft and non- tender fundus firm no edema neg Dirk's ten d/c in AM Results & Data ([facility]) Vital Signs (Past 12 Hours) Vital Signs Temp Pulse Resp BP Pulse Ox 12/13/19 07:46 36.9 C 66 18 102/66 96 12/13/19 04:10 37.0 C 69 16 106/69 12/13/19 00:15 37.1 C 69 16 104/65 Laboratory Results Laboratory Results - last 72 hr 12/12/19 12/12/19 12/12/19 13:42 13:42 15:21 WBC 7.64 RBC 3.61 L Hgb 11.2 L Hct 33.1 L MCV 91.7 MCH 31.0 MCHC 33.8 RDW Std Deviation 46.0 RDW Coeff of Rita 13.8 Plt Count 121 L MPV 11.7 H Platelet Estimate RPR Hep Bs Antigen Neg HIV 1&2 Ab/P24 Ag 4thGn Rubella IgG Antibody Immune Blood Type B Positive Antibody Screen NEGATIVE 12/12/19 12/12/19 12/13/19 15:21 15:21 05:43 WBC 10.46 RBC 3.26 L Hgb 10.2 L Hct 30.0 L MCV 92.0 MCH 31.3 MCHC 34.0 RDW Std Deviation 45.9 RDW Coeff of Rita 13.8 Plt Count 120 L MPV 12.2 H Platelet Estimate Decreased L RPR Nonreactive Hep Bs Antigen HIV 1&2 Ab/P24 Ag 4thGn Neg Rubella IgG Antibody Blood Type Antibody Screen
[2019-12-13] MEDS ORDERED: bisacodyL 5 MG TABEC PO SCH (20:00)
[2019-12-14 06:02] LABS: Hematocrit (blood only) 30.5 % (37-47); Hemoglobin 10.3 g/dL (12.0-16.0)
--- NOTE | 2019-12-14 08:32 | Obstetrical Progress Note ---
Date of Service December 14, 2019 Assessment & Plan Admission and Anticipated Discharge Date Admission Date: December 12, 2019 Subjective Patient is seen and examined. Used hospital account liaison services to communicate She feels well, no complaints. Ambulating without dizziness Voiding without difficulty Tolerating regular diet with out N&V Bleeding is minimal No fever/ chills/ CP/ SOB/ N&V/ Leg pain Breast feeding without problems Vital Signs Temp Pulse Resp BP Pulse Ox 12/14/19 00:00 36.6 C 58 L 20 100/62 12/13/19 20:05 37.1 C 71 18 107/69 12/13/19 15:40 36.8 C 67 18 109/72 98 12/13/19 12:06 36.9 C 62 18 100/67 97 Lab Results 12/12/19 12/12/19 12/12/19 Range/Units 13:42 13:42 15:21 WBC 7.64 (4.8-10.8) K/uL RBC 3.61 L (4.2-5.4) M/uL Hgb 11.2 L (12.0-16.0) g/dL Hct 33.1 L (37-47) % MCV 91.7 (80-100) fL MCH 31.0 (25-34) pg MCHC 33.8 (32-36) g/dL RDW Std Deviation 46.0 (36.4-46.3) fL RDW Coeff of Rita 13.8 (11.5-14.5) % Plt Count 121 L (130-400) K/uL MPV 11.7 H (7.4-10.4) fL Platelet Estimate (Normal) RPR (Nonreactive) Hep Bs Antigen Neg (Neg) HIV 1&2 Ab/P24 Ag 4thGn (Neg) Rubella IgG Antibody Immune (Immune) Blood Type B Positive Antibody Screen NEGATIVE 12/12/19 12/12/19 12/13/19 Range/Units 15:21 15:21 05:43 WBC 10.46 (4.8-10.8) K/uL RBC 3.26 L (4.2-5.4) M/uL Hgb 10.2 L (12.0-16.0) g/dL Hct 30.0 L (37-47) % MCV 92.0 (80-100) fL MCH 31.3 (25-34) pg MCHC 34.0 (32-36) g/dL RDW Std Deviation 45.9 (36.4-46.3) fL RDW Coeff of Irta 13.8 (11.5-14.5) % Plt Count 120 L (130-400) K/uL MPV 12.2 H (7.4-10.4) fL Platelet Estimate Decreased L (Normal) RPR Nonreactive (Nonreactive) Hep Bs Antigen (Neg) HIV 1&2 Ab/P24 Ag 4thGn Neg (Neg) Rubella IgG Antibody (Immune) Blood Type Antibody Screen 12/14/19 Range/Units 05:27 WBC (4.8-10.8) K/uL RBC (4.2-5.4) M/uL Hgb 10.3 L (12.0-16.0) g/dL Hct 30.5 L (37-47) % MCV (80-100) fL MCH (25-34) pg MCHC (32-36) g/dL RDW Std Deviation (36.4-46.3) fL RDW Coeff of Rita (11.5-14.5) % Plt Count (130-400) K/uL MPV (7.4-10.4) fL Platelet Estimate (Normal) RPR (Nonreactive) Hep Bs Antigen (Neg) HIV 1&2 Ab/P24 Ag 4thGn (Neg) Rubella IgG Antibody (Immune) Blood Type Antibody Screen PE: General: Alert, orientedx3, NAD Abd: soft, NT, fundus firm, below Umbilicus Perineum intact, Lochia rubra minimal Ext; NT, no edema AP: 29 yo s/p , ppd# 2 VSS Afebrile doing well Continue routine care All questions were answered Discussed when to call D/C home , f/u in office Results & Data ([facility]) Vital Signs (Past 12 Hours) Vital Signs Temp Pulse Resp BP 12/14/19 00:00 36.6 C 58 L 20 100/62
[2019-12-14] MEDS: DOCUSATE SODIUM 100 MG CAP PO SCH (09:07)
[2019-12-14] MEDS: PRENATAL VITAMIN 1 TAB PO SCH (09:07)
== END 2019-12-14 10:45 | disposition home or self-care (01) | DRG 807 ==
LOC: OPB 12:24 → 4S1 12:25 → 4S2 23:08